=== PATIENT | female | born 1970 | race Caucasian/White ===

== ENCOUNTER 2017-12-14 19:58 | Emergency (ER) | payer OTHER ==
[~2017-12-14] VITALS: Ht 165.1 cm; Wt 83.5 kg
[2017-12-14 20:20] VITALS: BP 147/86
[2017-12-14] MEDS ORDERED: LIDOCAINE 1%-EPI 1:100,000 20 ML VIAL ONE (22:23)
== END 2017-12-14 23:33 | disposition home or self-care (01) ==
LOC: ER 20:07
DX: L02.211 Cutaneous abscess of abdominal wall (principal); L72.3 Sebaceous cyst; I10 Essential (primary) hypertension; Z83.3 Family history of diabetes mellitus
CPT/HCPCS: 82962-TC; A4606; A6253; J3490; Z7610

== ENCOUNTER 2018-11-14 10:46 | Emergency (ER) | payer MEDICAID, OTHER ==
[~2018-11-14] VITALS: Ht 157.5 cm; Wt 81.6 kg
[2018-11-14 10:55] VITALS: BP 137/71
[2018-11-14] MEDS ORDERED: IBUPROFEN 600 MG TABLET PO ONE ×2 (11:48→12:00)
== END 2018-11-14 13:02 | disposition home or self-care (01) ==
LOC: ER 10:46
DX: S89.82XA Other specified injuries of left lower leg, initial encounter (principal); G89.29 Other chronic pain; I10 Essential (primary) hypertension; X58.XXXA Exposure to other specified factors, initial encounter; Y93.89 Activity, other specified; Y92.89 Other specified places as the place of occurrence of the external cause; Y99.8 Other external cause status
CPT/HCPCS: 73502; 73564-TC

== ENCOUNTER 2021-03-29 15:46 | Emergency (ER) | payer OTHER ==
[~2021-03-29] VITALS: Ht 157.5 cm; Wt 90.7 kg
[2021-03-29 16:00] VITALS: BP 138/89
[2021-03-29] MEDS ORDERED: HYDROCODONE/APAP 10/325MG TABLET ONE (16:25)
[2021-03-29] MEDS ORDERED: DEXAMETHASONE SOD PHOSPHATE 10 MG/ML VIAL ONE (16:25)
[2021-03-29] MEDS ORDERED: KETOROLAC TROMETHAMINE 15 MG/ML VIAL ONE (16:25)
[2021-03-29] MEDS: HYDROCODONE/APAP 10/325MG TABLET PO ONE (16:32)
[2021-03-29] MEDS: DEXAMETHASONE SOD PHOSPHATE 10 MG/ML VIAL IM ONE (16:32)
[2021-03-29] MEDS: KETOROLAC TROMETHAMINE INJ 30 MG/ML VIAL IM ONE (16:32)
[2021-03-29 17:08] LABS: BILIRUBIN,URINE NEGATIVE (NEGATIVE); COLOR,URINE YELLOW (YELLOW); LEUKOCYTE ESTERASE ,URINE NEGATIVE (NEGATIVE); NITRITE, URINE NEGATIVE (NEGATIVE); PH,URINE 5.5 (5.0-8.0); PROTEIN,URINE NEGATIVE (NEGATIVE); UGLUCOSE NEGATIVE (NEGATIVE); UROBILINOGEN,URINE 0.2 EU/dL (0.2)
[2021-03-29 17:30] LABS: BACTERIA,URINE 1+ /HPF (None Seen); SQUAMOUS EPITHELIAL CELL,UR 0-2 /HPF (None Seen)
[2021-03-29] MEDS ORDERED: NAPR500T6 PO (17:50)
[2021-03-29] MEDS ORDERED: CYCL5TAB PO (17:50)
--- NOTE | 2021-03-29 18:22 | NUR ---
patient a/ox4, ambulatory with steady gait. Pain improved. Patient discharged to home in stable condition. Written and verbal after care instructions given. Patient verbalizes understanding of instruction.
== END 2021-03-29 18:23 | disposition home or self-care (01) ==
LOC: ER 15:46
DX: M54.42 Lumbago with sciatica, left side (principal); M71.21 Synovial cyst of popliteal space [Baker], right knee; I10 Essential (primary) hypertension
CPT/HCPCS: 81001; 84703; 93970; 96372 ×2; 99284; J1100; J1885

== ENCOUNTER 2021-09-09 09:35 | Emergency (ER) | payer OTHER, MEDICAID ==
[~2021-09-09] VITALS: Ht 157.5 cm; Wt 72.6 kg
[~2021-09-09 09:35] MED LIST: CYCL5TAB PO; NAPR500T6 PO
[2021-09-09] MEDS ORDERED: ONDANSETRON HCL/PF 4 MG/2 ML VIAL ONE (09:48)
--- NOTE | 2021-09-09 09:50 | NUR ---
The patient bibs for c/o back pain x 3 days, 10/10 pain scale. Abdomen soft and non-distended. Respiration regular and unlabored. Will continue to monitor the patient.
--- NOTE | 2021-09-09 09:55 | NUR ---
Urine collected and sent to the lab
[2021-09-09] MEDS: IV NS 0.9% 1,000 ML BAG IV ONE (10:05)
[2021-09-09] MEDS: ONDANSETRON HCL/PF 4 MG/2 ML VIAL IVP ONE (10:06)
[2021-09-09 10:41] LABS: CALCIUM, SERUM 8.5 mg/dL (8.5-10.1); CREATININE 0.6 mg/dL (0.6-1.3); POTASSIUM 3.9 mmol/L (3.5-5.1)
[2021-09-09 10:56] LABS: BASOPHILS % (AUTO) 0.4 % (0.0-2.0); EOSINOPHILS % (AUTO) 1.2 % (0.0-6.0); HEMATOCRIT 37 % (33-45); HEMOGLOBIN 12.3 g/dL (11.5-14.8); LYMPHOCYTES # (AUTO) 1.3 K/uL (0.8-4.8); LYMPHOCYTES % (AUTO) 13.3 % (20.0-44.0); MEAN CORPUSCULAR HGB CONC 33 g/dl (31.0-36.0); MEAN CORPUSCULAR VOLUME 87 fL (82-100); MONOCYTES # (AUTO) 0.6 K/uL (0.1-1.30); MONOCYTES % (AUTO) 5.8 % (2.0-12.0); NEUTROPHILS # (AUTO) 7.8 K/uL (1.8-8.9); NEUTROPHILS % (AUTO) 79.3 % (43.0-81.0); PLATELET COUNT (AUTO) 311 K/uL (150-450); RED BLOOD CELL COUNT(AUTO) 4.29 MIL/uL (4.0-5.2); WHITE BLOOD COUNT (AUTO) 9.8 K/uL (4.3-11.0)
[2021-09-09 11:01] LABS: ALBUMIN 3.7 g/dL (3.4-5.0); BILIRUBIN,DIRECT 0.1 mg/dL (0.0-0.2); BILIRUBIN,TOTAL 0.3 mg/dL (0.2-1.0); TOTAL PROTEIN, SERUM 7.6 g/dL (6.4-8.2)
--- NOTE | 2021-09-09 11:05 | NUR ---
THE PATIENT IS TAKEN TO CT
[2021-09-09 11:07] LABS: BILIRUBIN,URINE NEGATIVE (NEGATIVE); COLOR,URINE YELLOW (YELLOW); LEUKOCYTE ESTERASE ,URINE NEGATIVE (NEGATIVE); NITRITE, URINE NEGATIVE (NEGATIVE); PH,URINE 6.5 (5.0-8.0); PROTEIN,URINE NEGATIVE (NEGATIVE); UGLUCOSE NEGATIVE (NEGATIVE); UROBILINOGEN,URINE 0.2 EU/dL (0.2)
--- NOTE | 2021-09-09 11:16 | NUR ---
THE PATIENT IS BACK FROM CT
[2021-09-09 11:49] LABS: BACTERIA,URINE Few /HPF (None Seen); RBC,URINE 0-2 /HPF (0-2); SQUAMOUS EPITHELIAL CELL,UR Few /HPF (None Seen); WBC,URINE 0-2 /HPF (0-3)
[2021-09-09] MEDS ORDERED: KETOROLAC TROMETHAMINE INJ 30 MG/ML VIAL ONE (12:30)
[2021-09-09] MEDS ORDERED: FENTANYL PF 100MCG/2ML AMPUL ONE (12:30)
[2021-09-09] MEDS: FENTANYL PF 100MCG/2ML AMPUL IV ONE (12:34)
[2021-09-09] MEDS: KETOROLAC TROMETHAMINE INJ 30 MG/ML VIAL IV ONE (12:34)
[2021-09-09] MEDS ORDERED: CYCL5TAB PO (12:45)
[2021-09-09] MEDS ORDERED: HYDR-4303 PO (12:45)
[2021-09-09] MEDS ORDERED: NAPR500T6 PO (12:45)
[2021-09-09 13:54] VITALS: BP 133/75
--- NOTE | 2021-09-09 13:54 | NUR ---
IV removed. Catheter intact and site benign. Pressure and 4x4 applied to site. No bleeding noted.Patient discharged to home in stable condition. Written and verbal after care instructions given. Patient verbalizes understanding of instruction.
== END 2021-09-09 13:54 | disposition home or self-care (01) ==
LOC: ER 09:38
DX: M54.6 Pain in thoracic spine (principal); R10.9 Unspecified abdominal pain; I10 Essential (primary) hypertension; Z79.899 Other long term (current) drug therapy
CPT/HCPCS: 36415; 74176; 80048; 80076; 81001; 83690; 84703; 85025; 93005; 96361; 96374; 96375; 99285; J1885; J2405; J3010; J7030

== ENCOUNTER 2022-08-28 12:51 | Emergency (ER) | payer MEDICAID, OTHER ==
[~2022-08-28] VITALS: Ht 157.5 cm; Wt 81.6 kg
[~2022-08-28 12:51] MED LIST changes: +HYDR-4303 PO
[2022-08-28] MEDS ORDERED: GABAPENTIN 100 MG CAPSULE PO ONE (14:30)
[2022-08-28] MEDS ORDERED: GABAPENTIN 100 MG CAPSULE ONE (14:33)
--- NOTE | 2022-08-28 14:55 | NUR ---
NEURONTIN PO ADMINISTERED INDICATED, HYACINTH WELL.
--- NOTE | 2022-08-28 15:05 | NUR ---
IV LINE ESTABLISHED; BLOOD DRAWN AND COLLECTED BY PHLEB AT BEDSIDE.
[2022-08-28 15:21] LABS: BASOPHILS % (AUTO) 0.2 % (0.0-2.0); HEMATOCRIT 36 % (33-45); HEMOGLOBIN 12.1 g/dL (11.5-14.8); LYMPHOCYTES # (AUTO) 0.8 K/uL (0.8-4.8); LYMPHOCYTES % (AUTO) 8.7 % (20.0-44.0); MEAN CORPUSCULAR HGB CONC 33 g/dl (31.0-36.0); MEAN CORPUSCULAR VOLUME 85 fL (82-100); MONOCYTES # (AUTO) 0.5 K/uL (0.1-1.30); MONOCYTES % (AUTO) 5.3 % (2.0-12.0); NEUTROPHILS # (AUTO) 7.4 K/uL (1.8-8.9); NEUTROPHILS % (AUTO) 85.8 % (43.0-81.0); PLATELET COUNT (AUTO) 264 K/uL (150-450); RED BLOOD CELL COUNT(AUTO) 4.31 MIL/uL (4.0-5.2); WHITE BLOOD COUNT (AUTO) 8.7 K/uL (4.3-11.0)
[2022-08-28 15:34] LABS: CALCIUM, SERUM 8.6 mg/dL (8.5-10.1); CARBON DIOXIDE 27 mmol/L (21-32); CHLORIDE 102 mmol/L (98-107); CREATININE 0.5 mg/dL (0.6-1.3); GLUCOSE 97 mg/dL (74-106); POTASSIUM 3.3 mmol/L (3.5-5.1); SODIUM SERUM 137 mmol/L (136-145); UREA NITROGEN, BLOOD 10 mg/dL (7-18)
[2022-08-28 15:44] LABS: ALANINE AMINOTRANSFERASE 47 U/L (12-78); ALBUMIN 3.7 g/dL (3.4-5.0); ALKALINE PHOSPHATASE 98 U/L (46-116); ASPARTATE AMINOTRANSFERASE 34 U/L (15-37); BILIRUBIN,DIRECT 0.1 mg/dL (0.0-0.2); BILIRUBIN,TOTAL 0.6 mg/dL (0.2-1.0); TOTAL PROTEIN, SERUM 7.8 g/dL (6.4-8.2)
[2022-08-28] MEDS ORDERED: POTASSIUM CHLORIDE 20 MEQ TAB.PRT.SR PO ONE (16:00)
--- NOTE | 2022-08-28 17:35 | NUR ---
supervisor fine grading at bedside for ultrasound
[2022-08-28] MEDS ORDERED: IOHEXOL-300 100 ML VIAL IV ONE (17:40)
--- NOTE | 2022-08-28 17:40 | NUR ---
IV LINE ESTABLISHED ON LAC #20. CALLED RADIOLOGY FOR CT SCAN
[2022-08-28] MEDS ORDERED: IV NS 0.9% 250 ML IV ONE (17:41)
[2022-08-28] MEDS ORDERED: CT SWABBABLE VALVE TRANS SET 1 EA INFUS.SET MC ONE (17:41)
--- NOTE | 2022-08-28 19:18 | NUR ---
CALLED RADIOLOGY FOR CD
[2022-08-28 19:20] VITALS: BP 138/74
--- NOTE | 2022-08-28 19:30 | NUR ---
Patient discharged to home in stable condition. Written and verbal after care instructions given. Patient verbalizes understanding of instruction.
--- NOTE | 2022-08-28 19:30 | NUR ---
IV removed. Catheter intact and site benign. Pressure and 4x4 applied to site. No bleeding noted.
== END 2022-08-28 19:31 | disposition home or self-care (01) ==
LOC: ER 12:54
DX: R53.1 Weakness (principal); I10 Essential (primary) hypertension; E87.6 Hypokalemia
CPT/HCPCS: 99285; 72125; 93971; 71045; 93005; 70450; 73201; 85025; 80048; 80076; 36415; 84484; J7050; Q9967

== ENCOUNTER 2023-08-31 12:30 | Emergency (ER) | payer OTHER ==
[~2023-08-31] VITALS: Ht 157.5 cm; Wt 81.6 kg
[2023-08-31] MEDS ORDERED: MECLIZINE HCL 25 MG TABLET ONE (13:39)
[2023-08-31] MEDS: MECLIZINE HCL 25 MG TABLET PO ONE (13:41)
[2023-08-31 14:24] LABS: BASOPHILS % (AUTO) 0.4 % (0.0-2.0); EOSINOPHILS % (AUTO) 0.3 % (0.0-6.0); HEMATOCRIT 39 % (33-45); HEMOGLOBIN 12.4 g/dL (11.5-14.8); LYMPHOCYTES # (AUTO) 0.8 K/uL (0.8-4.8); LYMPHOCYTES % (AUTO) 10.3 % (20.0-44.0); MEAN CORPUSCULAR HEMOGLOBIN 28 PG (26.0-33.0); MEAN CORPUSCULAR HGB CONC 32 g/dl (31.0-36.0); MEAN CORPUSCULAR VOLUME 87 fL (82-100); MONOCYTES # (AUTO) 0.4 K/uL (0.1-1.30); MONOCYTES % (AUTO) 4.9 % (2.0-12.0); NEUTROPHILS # (AUTO) 6.3 K/uL (1.8-8.9); NEUTROPHILS % (AUTO) 84.1 % (43.0-81.0); PLATELET COUNT (AUTO) 306 K/uL (150-450); RED BLOOD CELL COUNT(AUTO) 4.41 MIL/uL (4.0-5.2); RED CELL DISTRIBUTION WIDTH 14.1 % (11.5-15.0); WHITE BLOOD COUNT (AUTO) 7.5 K/uL (4.3-11.0)
[2023-08-31 14:49] LABS: CALCIUM, SERUM 9.2 mg/dL (8.5-10.1); CARBON DIOXIDE 27 mmol/L (21-32); CHLORIDE 100 mmol/L (98-107); CREATININE 0.5 mg/dL (0.6-1.3); GLUCOSE 105 mg/dL (74-106); POTASSIUM 3.6 mmol/L (3.5-5.1); SODIUM SERUM 138 mmol/L (136-145); UREA NITROGEN, BLOOD 15 mg/dL (7-18)
[2023-08-31 14:56] LABS: ALANINE AMINOTRANSFERASE 34 U/L (12-78); ALBUMIN 3.6 g/dL (3.4-5.0); ALKALINE PHOSPHATASE 94 U/L (46-116); ASPARTATE AMINOTRANSFERASE 22 U/L (15-37); BILIRUBIN,DIRECT 0.1 mg/dL (0.0-0.2); BILIRUBIN,TOTAL 0.4 mg/dL (0.2-1.0); NT-PRO BNP 161 pg/mL (0-125); TOTAL PROTEIN, SERUM 7.8 g/dL (6.4-8.2)
[2023-08-31] MEDS ORDERED: ONDANSETRON HCL/PF 4 MG/2 ML VIAL ONE (16:47)
[2023-08-31] MEDS: ONDANSETRON HCL/PF - ER 4 MG/2 ML VIAL IV ONE (16:53)
[2023-08-31] MEDS ORDERED: MECL-159 PO (17:37)
[2023-08-31] MEDS ORDERED: ONDA4TAB11 PO (17:37)
[2023-08-31 17:45] VITALS: BP 126/62; TEMP 98; O2SAT 100
== END 2023-08-31 17:45 | disposition home or self-care (01) ==
LOC: ER 12:34
DX: R42 Dizziness and giddiness (principal); R11.2 Nausea with vomiting, unspecified; I10 Essential (primary) hypertension
CPT/HCPCS: 99285; 96374; 70450; 71045; 93005; 85025; 80048; 80076; 36415; 84484; 83880; 82962; J8597; J2405

== ENCOUNTER 2024-08-14 22:45 | Emergency (ER) | payer OTHER ==
[~2024-08-14] VITALS: Ht 157.5 cm; Wt 81.6 kg
[~2024-08-14 22:45] MED LIST changes: +MECL-159 PO; +ONDA4TAB11 PO
[2024-08-14 23:29] VITALS: BP 122/84; TEMP 98.2; O2SAT 99
[2024-08-15] MEDS ORDERED: LIDOCAINE HCL/MPF 1% 30 ML VIAL IJ ONE (01:05)
[2024-08-15] MEDS ORDERED: IBUPROFEN 600 MG TABLET ONE (01:05)
[2024-08-15] MEDS ORDERED: TDAP [DIPH/PERTUSSIS/TET] 0.5 ML VIAL IM ONE (01:05)
[2024-08-15] MEDS: LIDOCAINE HCL/PF 1% 30 ML VIAL IM ONE (01:11)
[2024-08-15] MEDS: IBUPROFEN 600 MG TABLET PO ONE (01:11)
[2024-08-15] MEDS: TDAP [DIPH/PERTUSSIS/TET] 0.5 ML VIAL IM ONE (01:12)
== END 2024-08-15 02:10 | disposition home or self-care (01) ==
LOC: ER 22:49
DX: S01.111A Laceration without foreign body of right eyelid and periocular area, initial encounter (principal); I10 Essential (primary) hypertension; W22.8XXA Striking against or struck by other objects, initial encounter; Y93.89 Activity, other specified; Y92.090 Kitchen in other non-institutional residence as the place of occurrence of the external cause; Y99.8 Other external cause status
CPT/HCPCS: 12011; 99282; J3490; 90715